=== PATIENT | female | born 1995 | race Hispanic/Latino ===

== ENCOUNTER 2016-07-26 14:41 | Emergency (ER) | payer MEDICAID, OTHER ==
[2016-07-26 14:42] VITALS: BMI 21.2
[2016-07-26 15:05] VITALS: RESP 18
--- NOTE | 2016-07-26 15:43 | ED PDOC ---
Arrival/HPI - General Chief Complaint: Back Pain Time Seen by Provider: 07/26/16 14:54 - History of Present Illness Narrative History of Present Illness (Text): 07/26/16 15:36 Patient presents with right lower lumbar back pain after lifting a heavy bag at work. Pt states pain feels like a muscle spasm, worst with movement and palpation. No ripping/tearing sensation, pt is not diffuse and not traveling or changing location. Relieved with positioning. No lower extremity pain/weakness/ paresthesias. Pt denies urinary incontinence or retention. No bowel incontinence , constipation, or diarrhea. No hx of IVDA, no f/c, no neck pain. No other complaints. Patient states she followed up with a timber management specialist who gave her prescriptions for Naprosyn and Flexeril. States that she has taken Flexeril but not Naprosyn. States that he experienced the same pain this morning which brought her to the emergency department. Patient states that the incident at work was 2 days ago. Past Medical History - Provider Review Nursing Documentation Reviewed: Yes - Past History Past History: No Previous - Infectious Disease Hx of Infectious Diseases: None - Tetanus Immunization Tetanus Immunization: Unknown - Past Medical History Past Medical History: No Previous - Cardiac Hx Cardiac Disorders: No - Pulmonary Hx Tuberculosis: No - Neurological HX Cerebrovascular Accident: No Hx Seizures: No - HEENT Hx HEENT Disorder: No - Renal Hx Renal Disorder: No - Endocrine/Metabolic Hx Endocrine Disorders: No - Hematological/Oncological Hx Blood Disorders: No Hx Cancer: No - Integumentary Hx Dermatological Disorder: No - Musculoskeletal/Rheumatological Hx Musculoskeletal Disorders: No - Gastrointestinal Hx Gastrointestinal Disorders: No - Genitourinary/Gynecological Hx Genitourinary Disorders: No Hx Sexually Transmitted Diseases: No - Psychiatric Hx Bipolar Disorder: Yes Hx Depression: Yes Hx Substance Use: No - Past Surgical History Past Surgical History: No Previous - Anesthesia Hx Anesthesia: No - Suicidal Assessment Feels Threatened In Home Enviroment: No Family/Social History Family/Social History: Unknown Family HX Smoking Status: Heavy Smoker > 10 Cigarettes Daily Hx Alcohol Use: No Hx Substance Use: No Hx Substance Use Treatment: No Allergies/Home Meds Allergies/Adverse Reactions: Allergies No Known Allergies Allergy (Verified 01/15/15 19:52) Home Medications: Home Meds Medication Instructions Recorded Confirmed No Known Home Med 07/26/16 07/26/16 Physical Exam - Physical Exam Narrative Physical Exam (Text): 07/26/16 15:38 - Review of Systems Constitutional: Normal. absent: Fatigue, Weight Change, Fevers Eyes: Normal ENT: denies sore throat, denies tristhmus Respiratory: Normal. absent: SOB, Cough, Sputum Cardiovascular: absent: Chest Pain, Palpitations, Syncope Gastrointestinal: Normal. absent: Abdominal Pain, Diarrhea, Nausea, Vomiting Genitourinary: Normal. absent: Dysuria, Frequency, Hematuria, vaginal bleeding Musculoskeletal: Back Pain. absent: Arthralgias, Neck Pain Skin: no rashes, no erythema Neurological: absent: Focal Weakness Endocrine: Normal Hemo/Lymphatic: Normal Psychiatric: No suicidal or homicidal ideations Physical exam Patient appears age appropriate in no distress, speaking full sentences without difficulty - Systems Exam Head: Present: Atraumatic, Normocephalic Pupils: Present: PERRL Extroacular Muscles: Present: EOMI Conjunctiva: Present: Normal Mouth: Present: Moist Mucous Membranes Neck: Present: Normal Range of Motion. No: MIDLINE TENDERNESS, Paraspinal Tenderness Respiratory/Chest: Present: Clear to Auscultation, Good Air Exchange. No: Respiratory Distress, Accessory Muscle Use, Tachypneic Cardiovascular: Present: Regular Rate and Rhythm, Normal S1, S2, Peripheal Pulses Present. No: Murmurs Abdomen: Present: Normal Bowel Sounds. No: Tenderness, Distention, Peritoneal Signs, Rebound, Guarding Back: Present: Increased hypertonicity appreciated in the lumbar region, pain reproduced with palpation. No midline tenderness. FROM of pt's cervical, thoracic, lumbar, and sacral regions appreciated, active/passive without any difficulty. Lower extremities with full neurological and vascular intact. Steady gait. No: Midline Tenderness Upper Extremity: Present: Normal Inspection. No: Cyanosis, Edema Lower Extremity: Present: Normal Inspection. No: Edema Neurological: Present: GCS=15, Speech Normal, cranial nerves II through XII fully intact with no cerebellar abnormality, neurosensory fully intact. No focal neurological deficits. Skin: Present: Warm, Dry, Normal Color. No: Rashes Lymphatic: Present: OX3, NI, NC Psychiatric: Present: Alert, Oriented x 3, Normal Insight, Normal Concentration Vital Signs Reviewed: Yes Vital Signs Temp Pulse Resp BP Pulse Ox 07/26/16 15:05 98.2 F 78 18 123/78 100 Temperature: Afebrile Blood Pressure: Normal Pulse: Regular Respiratory Rate: Normal Appearance: Positive for: Well-Appearing Pain Distress: None Mental Status: Positive for: Alert and Oriented X 3 Medical Decision Making ED Course and Treatment: 07/26/16 15:45 21-year-old female in the emergency department with right lower back pain. States this happened while she was lifting a heavy bag at work. Pain quality is reproducible with palpation. No midline tenderness. No paresthesias, no bowel or fecal incontinence or retention. Bilateral lower extremities fully neurovascularly intact. Patient requesting an MRI, states that she saw a spinal specialist who gave her Naprosyn, Flexeril, and physical therapy prescriptions already. I explained to the patient that based on history and physical examination there is no emergent indication for MRI at this time, and recommended outpatient MRI imaging if necessary by her spinal specialist or her primary care physician. X-rays ordered per patient's request 07/26/16 16:20 No acute findings on patient's x-rays as per radiology read Patient instructed to continue taking Naprosyn and Flexeril as per her prescriptions which she received outpatient pt received Toradol reported symptomatic relief. Based on hx and physical, no suspicion for renal involvement, cord impingement or epidural/spinal abscess stable for dc home. instructed not to drive/operate machinery/drink/do drugs with medications Pt verbalized understanding to return to the ER right away for new or worsening symptoms or for inability to f/u with PMD or specialist as instructed. Patient verbalized full agreement with and understanding of discharge instructions. States that he agrees with the plan and disposition. Verbalized and repeated discharge instructions and plan. I have given the patient opportunity to ask any additional questions. - RAD Interpretation Radiology Orders: 07/26/16 15:28 LS SPINE WITH OBL > 18 YRS OLD [RAD] Stat PELVIS ONE VIEW [RAD] Stat - Medication Orders Current Medication Orders: Discontinued Medications Ketorolac Tromethamine (Toradol) 15 mg IM STAT STA Stop: 07/26/16 15:32 Last Admin: 07/26/16 15:34 Dose: 15 mg Disposition/Present on Arrival - Present on Arrival Any Indicators Present on Arrival: No History of DVT/PE: No History of Uncontrolled Diabetes: No Urinary Catheter: No History of Decub. Ulcer: No History Surgical Site Infection Following: None - Disposition Have Diagnosis and Disposition been Completed?: Yes Diagnosis: Back pain Disposition: HOME/ ROUTINE Disposition Time: 16:22 Patient Plan: Discharge Condition: GOOD Discharge Instructions (ExitCare): Back Pain (ED), Acute Low Back Pain (ED) Additional Instructions: PLEASE RETURN TO THE EMERGENCY DEPARTMENT FOR NEW OR WORSENING SYMPTOMS. RETURN RIGHT AWAY IF YOU CANNOT FOLLOW UP WITH YOUR PRIMARY CARE DOCTOR, CLINIC, OR SPECIALIST IN 1-2 DAYS. Referrals: Jeannine Mustafa MD [Primary Care Provider] - Follow up with primary Chris Sanford MD [Staff Provider] - Follow up with primary Forms: WORK NOTE
[2016-07-26 16:09] LABS: URINE BILIRUBIN NEGATIVE (NEGATIVE); URINE BLOOD NEGATIVE (NEGATIVE); URINE GLUCOSE (UA) NEGATIVE (NEGATIVE); URINE KETONE NEGATIVE (NEGATIVE); URINE LEUKOCYTE ESTERASE NEGATIVE Leu/uL (NEGATIVE); URINE PROTEIN 30 mg/dL (<30 mg/dL); URINE UROBILINOGEN 0.2 E.U./dL (<1 E.U./dL)
--- NOTE | 2016-07-26 16:17 | RAD ---
PROCEDURE: Radiographs of the pelvis. HISTORY: Pain COMPARISON: None. FINDINGS: BONES: The pelvic ring is intact. Bone alignment and mineralization are normal. There is no acute fracture or bone destruction. JOINTS: Both sacroiliac joints are normal. The hip joint spaces are preserved. OTHER FINDINGS: There are no pathologic calcifications. IMPRESSION: No acute fracture or dislocation.
--- NOTE | 2016-07-26 16:18 | RAD ---
PROCEDURE: Radiographs of the Lumbar Spine. HISTORY: Pain COMPARISON: No prior. FINDINGS: BONES: There is normal alignment of the lumbar vertebral bodies. Lumbar lordosis is maintained. Vertebral bodies are normal in height. Bone mineralization is normal. There is no acute fracture, spondylolysis or spondylolisthesis. DISC SPACES: The disc heights are maintained. OTHER FINDINGS: There are no pathologic soft tissue calcifications. IMPRESSION: No acute fracture, spondylolysis or spondylolisthesis.
[2016-07-26 16:21] LABS: URINE APPEARANCE CLEAR (CLEAR); URINE COLOR YELLOW (YELLOW)
[2016-07-26 16:34] LABS: URINE BACTERIA MOD (NEG)
[2016-07-26 16:44] VITALS: BP 120/66; PULSE 91; TEMP 98.9; O2SAT 98
== END 2016-07-26 16:38 | disposition home or self-care (01) ==
LOC: ED 14:41
DX: M54.5 Low back pain (principal)
CPT/HCPCS: 72110; 72170; 81001; 96372; 99283; J1885

== ENCOUNTER 2016-08-03 17:57 | Emergency (ER) | payer MEDICAID, OTHER ==
[2016-08-03 17:57] VITALS: BMI 21.2
[2016-08-03 18:03] VITALS: TEMP 99.2
[2016-08-03] MEDS ORDERED: Sodium Chloride 0.9% 1,000 ML IV STA (18:10)
--- NOTE | 2016-08-03 18:14 | ED PDOC ---
Arrival/HPI - General Chief Complaint: GI Problem Time Seen by Provider: 08/03/16 17:58 Historian: Patient - History of Present Illness Time/Duration: Other (This morning) Symptom Onset: Gradual Symptom Course: Unchanged Severity Level: Moderate Activities at Onset: Rest Associated Symptoms (Text): 08/03/16 18:11 Patient states she woke up this morning with a sore throat URI and nausea and vomiting. She has a headache. There are some chills but no fever. No abdominal pain or diarrhea. No genitourinary symptoms. LMP is July 08. No travel or exposure. No injury or trauma. Past Medical History - Past History Past History: No Previous - Infectious Disease Hx of Infectious Diseases: None - Tetanus Immunization Tetanus Immunization: Unknown - Past Medical History Past Medical History: No Previous - Cardiac Hx Cardiac Disorders: No - Pulmonary Hx Respiratory Disorders: No Hx Tuberculosis: No - Neurological Hx Neurological Disorder: No HX Cerebrovascular Accident: No Hx Seizures: No - HEENT Hx HEENT Disorder: No - Renal Hx Renal Disorder: No - Endocrine/Metabolic Hx Endocrine Disorders: No - Hematological/Oncological Hx Blood Disorders: No Hx Cancer: No - Integumentary Hx Dermatological Disorder: No - Musculoskeletal/Rheumatological Hx Musculoskeletal Disorders: Yes Hx Back Pain: Yes - Gastrointestinal Hx Gastrointestinal Disorders: No - Genitourinary/Gynecological Hx Genitourinary Disorders: No Hx Sexually Transmitted Diseases: No - Psychiatric Hx Bipolar Disorder: Yes Hx Depression: Yes Hx Substance Use: No - Past Surgical History Past Surgical History: No Previous - Anesthesia Hx Anesthesia: No - Suicidal Assessment Feels Threatened In Home Enviroment: No Family/Social History - Physician Review Nursing Documentation Reviewed: Yes Family/Social History: Unknown Family HX Smoking Status: Light Smoker < 10 Cigarettes Daily Hx Alcohol Use: Yes Frequency of alcohol use: Socially Hx Substance Use: No Hx Substance Use Treatment: No Allergies/Home Meds Allergies/Adverse Reactions: Allergies No Known Allergies Allergy (Verified 08/03/16 17:59) Review of Systems - Physician Review All systems were reviewed & negative as marked: Yes - Review of Systems Constitutional: Fatigue. absent: Fevers ENT: Sore Throat Respiratory: absent: SOB, Cough, Sputum, Wheezing Cardiovascular: absent: Chest Pain, Palpitations, Syncope Gastrointestinal: Nausea, Vomiting. absent: Abdominal Pain, Constipation, Diarrhea, Anorexia Genitourinary Female: absent: Dysuria, Frequency, Hematuria Neurological: Headache. absent: Dizziness, Focal Weakness Physical Exam Vital Signs Temp Pulse Resp BP Pulse Ox 08/03/16 18:04 99.2 F 109 H 18 118/80 99 08/03/16 17:59 99.2 F 109 H 17 118/80 99 Temperature: Afebrile Blood Pressure: Normal Pulse: Tachycardic Respiratory Rate: Normal Appearance: Positive for: Well-Appearing, Non-Toxic, Uncomfortable Pain Distress: None Mental Status: Positive for: Alert and Oriented X 3 - Systems Exam Head: Present: Atraumatic, Normocephalic Pupils: Present: PERRL Extroacular Muscles: Present: EOMI Conjunctiva: Present: Normal Ears: Present: NORMAL TM, Normal Canal. No: Erythema Mouth: Present: Moist Mucous Membranes Pharnyx: No: ERYTHEMA, EXUDATE, TONSILS ENLARGED, Peritonsilar Swelling, Soft Palate/Uvular Edema Neck: Present: Normal Range of Motion. No: MIDLINE TENDERNESS, Paraspinal Tenderness Respiratory/Chest: Present: Clear to Auscultation, Good Air Exchange. No: Respiratory Distress, Accessory Muscle Use Cardiovascular: Present: Regular Rate and Rhythm, Normal S1, S2, Tachycardic. No: Murmurs Abdomen: Present: Normal Bowel Sounds. No: Tenderness, Distention, Peritoneal Signs, Rebound, Guarding Back: Present: Normal Inspection. No: CVA Tenderness, Midline Tenderness, Paraspinal Tenderness Upper Extremity: Present: Normal Inspection. No: Cyanosis, Edema Lower Extremity: Present: Normal Inspection. No: Edema Neurological: Present: GCS=15, CN II-XII Intact, Speech Normal, Motor Func Grossly Intact, Normal Cerebellar Funct, Gait Normal Skin: Present: Warm, Dry, Normal Color. No: Rashes Psychiatric: Present: Alert, Oriented x 3, Normal Insight, Normal Concentration Medical Decision Making ED Course and Treatment: 08/03/16 19:58 Symptoms markedly improved. - Lab Interpretations Lab Results: 08/03/16 17:00 08/03/16 17:00 Lab Results 08/03/16 17:00: Sodium 138, Potassium 4.2, Chloride 104, Carbon Dioxide 19 L, Anion Gap 19, BUN 10, Creatinine 0.5, Est GFR ( Amer) > 60, Est GFR (Non- Af Amer) > 60, Random Glucose 78, Calcium 9.6, Total Bilirubin 0.9, AST 34, ALT 24, Alkaline Phosphatase 69, Total Protein 8.5 H, Albumin 5.1 H, Globulin 3.3, Albumin/Globulin Ratio 1.5, Lipase 34 08/03/16 17:00: Urine Color Yellow, Urine Appearance Sl cloudy, Urine pH 6.5, Ur Specific [place] 1.025, Urine Protein 30 H, Urine Glucose (UA) Negative, Urine Ketones >=80, Urine Blood Negative, Urine Nitrate Positive H, Urine Bilirubin Negative, Urine Urobilinogen 1.0 H, Ur Leukocyte Esterase Trace H, Urine RBC Negative, Urine WBC 5 - 10, Ur Epithelial Cells 6 - 8, Urine Bacteria Mod, Urine HCG, Qual Negative 08/03/16 17:00: WBC 11.8 H D, RBC 4.03, Hgb 12.8, Hct 36.4, MCV 90.3, MCH 31.8, MCHC 35.2, RDW 12.2, Plt Count 208, MPV 10.3, Gran % 90.9 H, Lymph % (Auto) 4.2 L, [place] % (Auto) 4.6, Eos % (Auto) 0.1 L, Baso % (Auto) 0.2, Gran # 10.74 H, Lymph # 0.5 L, [place] # 0.5, Eos # 0.0, Baso # 0.02 - Medication Orders Current Medication Orders: Discontinued Medications Sodium Chloride (Sodium Chloride 0.9%) 1,000 mls @ 1,000 mls/hr IV .Q1H STA Stop: 08/03/16 19:09 Last Admin: 08/03/16 18:39 Dose: 1,000 mls/hr Ondansetron HCl (Zofran Inj) 4 mg IVP STAT STA Stop: 08/03/16 18:11 Last Admin: 08/03/16 18:39 Dose: 4 mg Disposition/Present on Arrival - Present on Arrival Any Indicators Present on Arrival: No History of DVT/PE: No History of Uncontrolled Diabetes: No Urinary Catheter: No History of Decub. Ulcer: No History Surgical Site Infection Following: None - Disposition Have Diagnosis and Disposition been Completed?: Yes Diagnosis: Nausea and vomiting, Gastroenteritis Disposition: HOME/ ROUTINE Disposition Time: 19:58 Patient Plan: Discharge Condition: IMPROVED Discharge Instructions (ExitCare): Gastroenteritis (ED), Acute Nausea and Vomiting (ED) Additional Instructions: Clear liquids for 24 hours. Follow-up with PMD. Follow up in ER as needed. Prescriptions: Ondansetron [Zofran Odt] 4 mg SL Q6 #20 odt
[2016-08-03 18:32] LABS: ADD MANUAL DIFF? NO
[2016-08-03 18:36] LABS: BASO # 0.02 K/mm3 (0.0-2.0); BASO % 0.2 % (0.0-3.0); EOS % 0.1 % (1.5-5.0); GRAN # 10.74 (1.4-6.5); GRAN % 90.9 % (50.0-68.0); HEMATOCRIT 36.4 % (36.0-48.0); LYMPH # 0.5 (1.2-3.4); LYMPH % 4.2 % (22.0-35.0); MEAN CELL VOLUME 90.3 fL (80.0-105.0); MEAN CORPUSCULAR HEMOGLOBIN 31.8 pg (25.0-35.0); MEAN CORPUSCULAR HGB CONC 35.2 g/dl (31.0-37.0); MEAN PLATELET VOLUME 10.3 fl (7.0-11.0); MONO # 0.5 (0.1-0.6); MONO % 4.6 % (1.0-6.0); PH,URINE 6.5 (4.7-8.0); PLATELET COUNT 208 10^3/uL (120.0-450.0); RED CELL DISTRIBUTION WIDTH 12.2 % (11.5-14.5); URINE BILIRUBIN NEGATIVE (NEGATIVE); URINE BLOOD NEGATIVE (NEGATIVE); URINE GLUCOSE (UA) NEGATIVE (NEGATIVE); URINE KETONE >=80 mg/dL (NEGATIVE); URINE LEUKOCYTE ESTERASE TRACE Leu/uL (NEGATIVE); URINE PROTEIN 30 mg/dL (<30 mg/dL); WHITE BLOOD COUNT 11.8 10^3/ul (4.5-11.0)
[2016-08-03 18:50] LABS: URINE COLOR YELLOW (YELLOW)
[2016-08-03 18:52] LABS: URINE APPEARANCE SL CLOUDY (CLEAR); URINE BACTERIA MOD (NEG); URINE RBC NEGATIVE /hpf (0-2)
[2016-08-03 19:21] LABS: ALB/GLOB RATIO 1.5 (1.1-1.8); ALKALINE PHOSPHATASE 69 U/L (38-133); ALT/SGPT 24 U/L (7-56); AST/SGOT 34 U/L (15-39); BILIRUBIN,TOTAL 0.9 mg/dL (0.2-1.3); BLOOD UREA NITROGEN 10 mg/dL (7-21); CALCIUM 9.6 mg/dL (8.4-10.5); CARBON DIOXIDE 19 mmol/L (21-33); CHLORIDE 104 mmol/L (95-110); GFR AFRICAN-AMERICAN > 60; GLUCOSE,RANDOM 78 mg/dL (70-110); LIPASE 34 U/L (23-300); POTASSIUM 4.2 mmol/L (3.6-5.0); SODIUM 138 mmol/L (132-148); TOTAL PROTEIN 8.5 g/dL (5.8-8.3)
[2016-08-03 20:49] VITALS: BP 119/82; PULSE 89; RESP 17; O2SAT 100
== END 2016-08-03 20:53 | disposition home or self-care (01) ==
LOC: ED 17:57
DX: K52.9 Noninfective gastroenteritis and colitis, unspecified (principal); R11.2 Nausea with vomiting, unspecified
CPT/HCPCS: 80053; 81001; 83690; 84703; 85025; 87086; 96361; 96374; 99284; J2405; J7040

== ENCOUNTER 2018-06-04 22:50 | Emergency (ER) | payer MEDICAID, OTHER ==
[2018-06-04 22:53] VITALS: BMI 14.6
[2018-06-04] MEDS ORDERED: Sodium Chloride 0.9% 1,000 ML IV STA (23:18)
[2018-06-04 23:30] VITALS: TEMP 98.2
--- NOTE | 2018-06-04 23:49 | ED PDOC ---
Arrival/HPI - General Chief Complaint: Anxiety Time Seen by Provider: 06/04/18 22:53 Historian: Patient - History of Present Illness Narrative History of Present Illness (Text): 06/04/18 23:43 22yr old female with a history of anxiety for the past month presents today with panic attack. pt states around 8pm she started feeling extremely anxious. pt states she was prescribed hydroxyzine for her anxiety. Patient states around 8 :00 today she started with feeling anxious feeling pain in the chest and feeling short of breath. Patient felt as if she was having an anxiety attack so she took 1 of the hydroxyzine. Patient states is not working. Patient states symptoms continued to worsen so she came to the emergency room for evaluation. Per patient, she has been under a lot of stress recently at work. pt denies recent travel but states she started control pills within the past week. Past Medical History - Provider Review Nursing Documentation Reviewed: Yes - Travel History Have you recently traveled outside [place] w/in the past 3 mons?: No - Past History Past History: No Previous - Infectious Disease Hx of Infectious Diseases: None - Tetanus Immunization Tetanus Immunization: Unknown - Past Medical History Past Medical History: No Previous - Cardiac Hx Cardiac Disorders: No - Pulmonary Hx Respiratory Disorders: No Hx Tuberculosis: No - Neurological Hx Neurological Disorder: No HX Cerebrovascular Accident: No Hx Seizures: No - HEENT Hx HEENT Disorder: No - Renal Hx Renal Disorder: No - Endocrine/Metabolic Hx Endocrine Disorders: No - Hematological/Oncological Hx Blood Disorders: No Hx Cancer: No - Integumentary Hx Dermatological Disorder: No - Musculoskeletal/Rheumatological Hx Musculoskeletal Disorders: Yes Hx Back Pain: Yes - Gastrointestinal Hx Gastrointestinal Disorders: No - Genitourinary/Gynecological Hx Genitourinary Disorders: No Hx Sexually Transmitted Diseases: No - Psychiatric Hx Anxiety: Yes Hx Bipolar Disorder: Yes Hx Depression: Yes Hx Substance Use: No - Past Surgical History Past Surgical History: No Previous - Anesthesia Hx Anesthesia: No - Suicidal Assessment Feels Threatened In Home Enviroment: No Family/Social History - Physician Review Nursing Documentation Reviewed: Yes Family/Social History: Unknown Family HX Smoking Status: Heavy Smoker > 10 Cigarettes Daily Hx Alcohol Use: No Hx Substance Use: No Hx Substance Use Treatment: No Allergies/Home Meds Allergies/Adverse Reactions: Allergies No Known Allergies Allergy (Verified 06/04/18 22:53) Home Medications: Home Meds Medication Instructions Recorded Confirmed Desogestrel-Ethinyl Estradiol 1 tab PO DAILY 06/04/18 06/04/18 [Isibloom 28 Day Tablet] hydrOXYzine HCl [Atarax] 25 mg PO TID PRN 06/04/18 06/04/18 Review of Systems - Review of Systems Constitutional: absent: Fatigue, Fevers Respiratory: SOB. absent: Cough Cardiovascular: Chest Pain, Palpitations Gastrointestinal: Nausea. absent: Abdominal Pain, Vomiting Genitourinary Female: absent: Dysuria Musculoskeletal: absent: Arthralgias Skin: absent: Rash, Pruritis Neurological: absent: Headache, Dizziness Psychiatric: Anxiety. absent: Depression, Suicidal Ideation Physical Exam Vital Signs Reviewed: Yes Vital Signs Temp Pulse Resp BP Pulse Ox 06/04/18 23:29 98.2 F 06/04/18 23:02 100 H 20 132/91 H 100 Temperature: Afebrile Blood Pressure: Hypertensive Pulse: Tachycardic Respiratory Rate: Normal Appearance: Positive for: Well-Appearing, Non-Toxic, Comfortable Pain Distress: None Mental Status: Positive for: Alert and Oriented X 3 - Systems Exam Head: Present: Atraumatic Neck: Present: Normal Range of Motion Respiratory/Chest: Present: Clear to Auscultation, Good Air Exchange. No: Respiratory Distress, Accessory Muscle Use Cardiovascular: Present: Regular Rate and Rhythm Abdomen: No: Tenderness, Distention, Rebound, Guarding Upper Extremity: Present: Normal ROM Lower Extremity: Present: Normal ROM Neurological: Present: GCS=15, Speech Normal Skin: Present: Warm, Dry, Normal Color. No: Rashes Psychiatric: Present: Alert, Oriented x 3, Anxious Medical Decision Making ED Course and Treatment: 06/04/18 23:50 Patient is nontoxic well-appearing in no distress vital signs are stable. pt anxious. CBC WNL CMP WNL dimer: WNL Tylenol WNL Salicylate WNL Alcohol level WNL Urine drug screen wnl UA; wnl cxr: wnl ekg: Normal sinus rhythm at 85 bpm normal axis normal intervals no ST elevations 06/05/18 00:55 Pt reassessment; pt feeling better; vitals stable. wants to speak with PES screener; i discussed all results with patient and parents in depth. pt seen and evaluated by PES screener: christine Patient was cleared psychiatrically for discharge. will d/c home to f/u with [facility] I advised taking Xanax 1 tablet every 8 hours as needed for anxiety. I advised both the patient and the parent that this is a highly addictive medication and should be used only in need of emergency. I have advised follow-up with the [facility] within the next 2 days and advised me to return if symptoms worsen persist or if new concerning symptoms develop Patient verbalizes understanding of discharge instructions and need for immediate followup. All aspects of this case were discussed the attending of record. impression; PTSD increase fluids xanax; 1 tablet every 8 hours as needed for anxiety. follow up with the PMD within the next 2 days. Follow up with the [facility] within the next 2 days. return immediately if symptoms worsen,persist or if new symptoms - RAD Interpretation Radiology Orders: 06/04/18 23:18 CHEST PORTABLE [RAD] Stat - Medication Orders Current Medication Orders: Sodium Chloride (Sodium Chloride 0.9%) 1,000 mls @ 999 mls/hr IV .Q1H1M STA Stop: 06/05/18 00:18 Disposition/Present on Arrival - Present on Arrival Any Indicators Present on Arrival: No History of DVT/PE: No History of Uncontrolled Diabetes: No Urinary Catheter: No History of Decub. Ulcer: No History Surgical Site Infection Following: None - Disposition Have Diagnosis and Disposition been Completed?: Yes Diagnosis: PTSD (post-traumatic stress disorder) Disposition: HOME/ ROUTINE Disposition Time: 00:57 Patient Plan: Discharge Patient Problems: Current Active Problems Problem Status Onset Anxiety Acute Condition: GOOD Discharge Instructions (ExitCare): Post-traumatic Stress Disorder (DC) Additional Instructions: increase fluids xanax; 1 tablet every 8 hours as needed for anxiety. follow up with the PMD within the next 2 days. Follow up with the [facility] within the next 2 days. return immediately if symptoms worsen,persist or if new symptoms Prescriptions: ALPRAZolam [Xanax] 0.25 mg PO Q8H PRN #3 tab PRN Reason: Anxiety Referrals: Jeannine Mustafa MD [Primary Care Provider] - Follow up with [facility]] - Follow up with primary Forms: [employer] (J[place]ican), WORK NOTE
[2018-06-04 23:58] LABS: BASO # 0.04 K/mm3 (0.0-2.0); BASO % 0.6 % (0.0-3.0); EOS # 0.2 (0.0-0.7); EOS % 2.8 % (1.5-5.0); HEMOGLOBIN 12.3 g/dL (12.0-16.0); LYMPH # 3.3 (1.2-3.4); LYMPH % 48.2 % (22.0-35.0); MEAN CORPUSCULAR HEMOGLOBIN 31.7 pg (25.0-35.0); MEAN CORPUSCULAR HGB CONC 34.5 g/dl (31.0-37.0); MEAN PLATELET VOLUME 9.5 fl (7.0-11.0); MONO # 0.5 (0.1-0.6); MONO % 6.9 % (1.0-6.0); RBC 3.88 10^6/uL (3.5-6.1); RED CELL DISTRIBUTION WIDTH 12.1 % (11.5-14.5); WHITE BLOOD COUNT 6.8 10^3/uL (4.5-11.0)
[2018-06-05 00:03] LABS: PH,URINE 8.5 (4.7-8.0); URINE BILIRUBIN NEGATIVE (NEGATIVE); URINE BLOOD NEGATIVE (NEGATIVE); URINE GLUCOSE (UA) NEGATIVE (NEGATIVE); URINE LEUKOCYTE ESTERASE NEGATIVE Leu/uL (NEGATIVE); URINE PROTEIN NEGATIVE mg/dL (<30 mg/dL); URINE UROBILINOGEN 0.2 E.U./dL (<1 E.U./dL)
[2018-06-05 00:10] LABS: ALB/GLOB RATIO 1.5 (1.1-1.8); ALBUMIN 4.5 g/dL (3.0-4.8); ALT/SGPT 11 U/L (7-56); AST/SGOT 23 U/L (14-36); BLOOD UREA NITROGEN 11 mg/dL (7-21); CALCIUM 9.2 mg/dL (8.4-10.5); GFR NON-AFRICAN AMERICAN > 60
[2018-06-05 00:11] LABS: URINE APPEARANCE CLEAR (CLEAR); URINE COLOR YELLOW (YELLOW)
[2018-06-05 00:16] LABS: ACETAMINOPHEN < 10.0 ug/ml (10.0-20.0); SALICYLATE < 1 mg/dL (2.0-20.0)
[2018-06-05 00:27] LABS: BARBITURATES, UR NEGATIVE (NEGATIVE); BENZODIAZEPINES, UR NEGATIVE (NEGATIVE); OPIATES, UR NEGATIVE (NEGATIVE); PHENCYCLIDINE, UR NEGATIVE (NEGATIVE)
[2018-06-05 01:12] VITALS: RESP 18
[2018-06-05 02:34] VITALS: BP 118/68; PULSE 91; O2SAT 99
--- NOTE | 2018-06-05 08:30 | RAD ---
HISTORY: anxiety/ cp/ sob/ COMPARISON: Chest x-ray performed 03/22/14 TECHNIQUE: Chest, one view. FINDINGS: LUNGS: No focal consolidation. Please note that chest x-ray has limited sensitivity for the detection of pulmonary masses. PLEURA: No significant pleural effusion identified. No definite pneumothorax . CARDIOVASCULAR: The cardiomediastinal silhouette appears within normal limits of size. No significant atherosclerotic calcification present. OSSEOUS STRUCTURES: No acute osseous abnormality identified. VISUALIZED UPPER ABDOMEN: Unremarkable. OTHER FINDINGS: None. IMPRESSION: No acute findings identified.
--- NOTE | 2018-06-05 11:14 | CARD ---
APPROVED REPORT Date of service: 06/04/2018 EKG Measurement Heart [id number] <Conclusion> Normal sinus rhythm Normal ECG
== END 2018-06-05 02:34 | disposition home or self-care (01) ==
LOC: ED 22:50
DX: F43.10 Post-traumatic stress disorder, unspecified (principal)
CPT/HCPCS: 71045; 80053; 80320; 80324; 80329; 80345; 80346; 80349; 80353; 80358; 80361; 81003; 81025; 83992; 85025; 85378; 90791; 93005; 99283; J7030